=== PATIENT | male | born 2000 | race African-American/Black ===

== ENCOUNTER 2021-04-16 00:08 | Emergency (ER) | payer OTHER ==
[~2021-04-16] VITALS: Ht 188 cm; Wt 127.0 kg
[2021-04-16 01:59] LABS: CALCIUM 8.5 mg/dL (8.5-10.1); CREATININE 1.1 mg/dL (0.6-1.3); POTASSIUM 3.4 mmol/L (3.5-5.1)
[2021-04-16 02:00] LABS: ABSOLUTE EOSINOPHILS 0.4 thou/uL (0.0-0.7); ABSOLUTE LYMPHOCYTES 1.8 thou/uL (0.8-5.3); ABSOLUTE MONOCYTES 1.2 thou/uL (0.0-1.2); ABSOLUTE NEUTROPHILS 6.2 thou/uL (1.6-8.1); BASOPHILS 0.5 %; HEMATOCRIT 42.7 % (42.0-52.0); HEMOGLOBIN 14.1 gm/dL (14.0-18.0); LYMPHOCYTES 18.7 %; MCH 29.2 pg (26.0-34.0); MCHC 33.1 g/dL (28.0-37.0); MCV 88.3 fL (80.0-100.0); MONOCYTES 12.4 %; MPV 7.3 fl. (7.2-11.1); NUCLEATED RBCS 0 /100WBC; PLATELET COUNT* 339 thou/uL (150-400); POLYS 64.4 %; RBC 4.83 mil/uL (4.50-6.00); RDW-CV 12.7 % (10.5-14.5); WBC 9.6 thou/uL (4.0-11.0)
[2021-04-16 02:13] VITALS: BP 160/79
--- NOTE | 2021-04-16 10:02 | EKG ---
[place] [address] ELECTROCARDIOGRAM REPORT Name: CORTEZ SMITH [id number] Admission: 04/16/21 Attend Phys: Discharge: 04/16/21 Date of : [birth year] Date of Service: 04/16/21 0027 Report #: [id number] THIS REPORT FOR: //name// [facility] ED Test Date: 2021-04-16 Test Time: 00:27:57 Pat Name: CORTEZ SMITH Department: Room: Gender: [employer]: [place] : 2000 Requested By: Varsha Puentes Order Number: [id number] MD: Jese Stokes Measurements Intervals [place] Rate: 71 P: 50 DC: 180 QRS: 50 QRSD: 95 T: 27 QT: 376 QTc: 409 Interpretive Statements Sinus rhythm Left atrial enlargement No previous ECG available for comparison Electronically Signed On 04-16-2021 10:02:09 DIRECTOR OF REAL ESTATE by Jese Stokes [email or web address] <ELECTRONICALLY SIGNED> By: Jese Stokes MD, [facility] 04/16/21 1002 0027 Jese Stokes MD, FACC /EPI
== END 2021-04-16 02:15 | disposition home or self-care (01) ==
LOC: M.ERS 00:08
PROVIDERS: Emergency Medicine
DX: F41.9 Anxiety disorder, unspecified (principal); Z20.822 Contact with and (suspected) exposure to COVID-19; Z91.048 Other nonmedicinal substance allergy status; Z88.8 Allergy status to other drugs, medicaments and biological substances